=== PATIENT | male | born 1995 | race Two or more races ===

== ENCOUNTER 2020-10-07 10:51 | Emergency (ER) | payer OTHER ==
[~2020-10-07] VITALS: Ht 190.5 cm; Wt 91.8 kg
[2020-10-07 11:27] VITALS: BP 157/108
== END 2020-10-07 11:40 | disposition home or self-care (01) ==
LOC: ER 10:52
DX: J06.9 Acute upper respiratory infection, unspecified (principal); R50.9 Fever, unspecified; R05 Cough; R09.89 Other specified symptoms and signs involving the circulatory and respiratory systems; Z20.828 Contact with and (suspected) exposure to other viral communicable diseases
CPT/HCPCS: 36415; 87635; 99283